=== PATIENT | female | born 1960 | race Caucasian/White ===

== ENCOUNTER 2021-04-30 11:07 | Emergency (ER) | payer OTHER ==
--- NOTE | 2021-04-30 11:39 | ERPHSYRPT ---
- History of Present Illness Time Seen by Provider: 04/30/21 11:15 Source: patient Exam Limitations: no limitations Patient Subjective Stated Complaint: Pt states "I got the first dose of the moderna vaccine and I was feeling ok, but then my heart started to race and I had a moment of chest pain but it is all better now. My heart is still racing." Triage Nursing Assessment: Pt presented alert and oriented X 3, skin wpd Pt able to speak in clear full sentences. Pt in no apparent respiratory distress. Pt resting comfortably on the bed. Physician History: Patient is a 60-year-old female presents to our emergency department for evaluation of chest pain and heart palpitations after receiving her first [employer] Covid vaccination. Symptoms started immediately after her vaccination. Patient experienced a brief moment of chest pain. Patient states her heart was racing. Patient states my heart feels like Jell-O. No other complaints. No nausea or vomiting. No diarrhea. No rash. No trauma. No fever. Symptoms are mild to moderate in intensity. No specific worsening improving factors. Patient voices no other complaints concerns at this time. Timing/Duration: today Severity: mild Modifying Factors: Improves With: nothing Associated Symptoms: denies symptoms, No shortness of breath, No syncope, No weakness Allergies/Adverse Reactions: No Known Drug Allergies Allergy (Verified 04/30/21 11:16) Home Medications: lisinopriL [Lisinopril] 10 mg PO DAILY 04/30/21 [History] Hx Tetanus, Diphtheria Vaccination/Date Given: No Hx Influenza Vaccination/Date Given: No Hx Pneumococcal Vaccination/Date Given: No Immunizations Up to Date: Yes Travel Risk - International Travel Have you traveled outside of the country in past 3 weeks: No - Coronavirus Screening Are you exhibiting any of the following symptoms?: No Close contact with a COVID-19 positive Pt in past 14-21 Days: No - Vaccine Status Have you recieved a Covid-19 vaccination: No (first dose) - Review of Systems Constitutional: No Symptoms, No Fever, No Chills Eyes: No Symptoms Ears, Nose, & Throat: No Symptoms Respiratory: No Symptoms, No Cough, No Dyspnea Cardiac: No Symptoms, No Chest Pain, No Edema, No Syncope Abdominal/Gastrointestinal: No Symptoms, No Abdominal Pain, No Nausea, No Vomiting, No Diarrhea Genitourinary Symptoms: No Symptoms, No Dysuria Musculoskeletal: No Symptoms, No Back Pain, No Neck Pain Skin: No Symptoms, No Rash Neurological: No Symptoms, No Dizziness, No Focal Weakness, No Sensory Changes Psychological: No Symptoms Endocrine: No Symptoms Hematologic/Lymphatic: No Symptoms Immunological/Allergic: No Symptoms All Other Systems: Reviewed and Negative - Past Medical History Pertinent Past Medical History: Yes Neurological History: No Pertinent History ENT History: No Pertinent History Cardiac History: Hypertension Respiratory History: No Pertinent History Endocrine Medical History: No Pertinent History Musculoskeletal History: No Pertinent History GI Medical History: No Pertinent History History: No Pertinent History Psycho-Social History: No Pertinent History Female Reproductive Disorders: No Pertinent History - Past Surgical History Past Surgical History: Yes Other Surgical History: thermal ablasion - Social History Smoking Status: Never smoker Exposure to second hand smoke: No Drug Use: none Patient Lives Alone: No - Nursing Vital Signs Nursing Vital Signs: Initial Vital Signs Temperature 98.0 F 04/30/21 11:09 Pulse Rate 99 H 04/30/21 11:09 Respiratory Rate 20 04/30/21 11:09 Blood Pressure 176/118 04/30/21 11:09 O2 Sat by Pulse Oximetry 98 04/30/21 11:09 Pain Scale Pain Intensity 0 - Physical Exam General Appearance: no apparent distress, alert Eye Exam: PERRL/EOMI, eyes nml inspection Ears, Nose, Throat Exam: normal ENT inspection, TMs normal, pharynx normal, moist mucous membranes Neck Exam: normal inspection, non-tender, supple, full range of motion Respiratory Exam: normal breath sounds, lungs clear, No respiratory distress Cardiovascular Exam: regular rate/rhythm, normal heart sounds, normal peripheral pulses Gastrointestinal/Abdomen Exam: soft, normal bowel sounds, No tenderness, No mass Back Exam: normal inspection, normal range of motion, No CVA tenderness, No vertebral tenderness Extremity Exam: normal inspection, normal range of motion, pelvis stable Neurologic Exam: alert, oriented x 3, cooperative, food and beverage checker II-XII nml as tested, normal mood/affect, sensation nml, No motor deficits Skin Exam: normal color, warm, dry, No rash Lymphatic Exam: No adenopathy SpO2 Interpretation: normal SpO2: 97 O2 Delivery: Room Air - Course Nursing assessment & vital signs reviewed: Yes EKG Interpreted by Me: RATE ([id number]), Sinus Rhythm, Right [place] Deviation, NORMAL INTERVALS Ordered Tests: Active Orders 24 hr Category Date Time Status Alignment Mechanic STAT Care 04/30/21 11:15 Active EKG-ER Only STAT Care 04/30/21 11:12 Active IV Insertion STAT Care 04/30/21 11:12 Active Pulse Oximetry (ED) STAT Care 04/30/21 11:12 Active CHEST 1 VIEW (PORTABLE) Stat Exams 04/30/21 11:15 Completed CBC W DIFF Stat Lab 04/30/21 11:35 Completed CMP Stat Lab 04/30/21 11:35 Completed TROPONIN Q3H Lab 04/30/21 11:35 Completed TROPONIN Q3H Lab 04/30/21 13:50 Completed TROPONIN Q3H Lab 04/30/21 17:15 Ordered TROPONIN Q3H Lab 04/30/21 20:15 Ordered TROPONIN Q3H Lab 04/30/21 23:15 Ordered Lab/Rad Data: Laboratory Result Diagrams 04/30/21 11:35 04/30/21 11:35 Laboratory Results 04/30/21 04/30/21 04/30/21 Range/Units 13:50 11:35 11:35 WBC (4.0-10.5) K/mm3 RBC (4.1-5.4) M/mm3 Hgb (12.0-16.0) gm/dl Hct (35-47) % MCV (78-100) fl MCH (26-32) pg MCHC (32-36) g/dl RDW (11.5-14.0) % Plt Count (150-450) K/mm3 MPV (7.5-11.0) fl Gran % (36.0-66.0) % Eos # (Auto) (0-0.5) Absolute Lymphs (auto) (1.0-4.6) Absolute Monos (auto) (0.0-1.3) Lymphocytes % (24.0-44.0) % Monocytes % (0.0-12.0) % Eosinophils % (0.00-5.0) % Basophils % (0.0-0.4) % Absolute Granulocytes (1.4-6.9) Basophils # (0-0.4) Sodium 140 (137-145) mmol/L Potassium 3.8 (3.5-5.1) mmol/L Chloride 107 (98-107) mmol/L Carbon Dioxide 23 (22-30) mmol/L Anion Gap 13.7 (5-15) MEQ/L BUN 16 (7-17) mg/dL Creatinine 0.62 (0.52-1.04) mg/dL Estimated GFR > 60.0 ML/MIN Glucose 141 H (74-106) mg/dL Calcium 9.1 (8.4-10.2) mg/dL Total Bilirubin 0.50 (0.2-1.3) mg/dL AST 30 (14-36) U/L ALT 18 (0-35) U/L Alkaline Phosphatase 75 (38-126) U/L Troponin I < 0.012 < 0.012 (0.000-0.034) ng/mL Serum Total Protein 6.6 (6.3-8.2) g/dL Albumin 4.1 (3.5-5.0) g/dL 04/30/21 Range/Units 11:35 WBC 5.1 (4.0-10.5) K/mm3 RBC 4.55 (4.1-5.4) M/mm3 Hgb 13.0 (12.0-16.0) gm/dl Hct 40.2 (35-47) % MCV 88.4 (78-100) fl MCH 28.6 (26-32) pg MCHC 32.3 (32-36) g/dl RDW 12.9 (11.5-14.0) % Plt Count 180 (150-450) K/mm3 MPV 11.2 H (7.5-11.0) fl Gran % 60.6 (36.0-66.0) % Eos # (Auto) 0.16 (0-0.5) Absolute Lymphs (auto) 1.40 (1.0-4.6) Absolute Monos (auto) 0.41 (0.0-1.3) Lymphocytes % 27.6 (24.0-44.0) % Monocytes % 8.1 (0.0-12.0) % Eosinophils % 3.1 (0.00-5.0) % Basophils % 0.6 (0.0-0.4) % Absolute Granulocytes 3.08 (1.4-6.9) Basophils # 0.03 (0-0.4) Sodium (137-145) mmol/L Potassium (3.5-5.1) mmol/L Chloride (98-107) mmol/L Carbon Dioxide (22-30) mmol/L Anion Gap (5-15) MEQ/L BUN (7-17) mg/dL Creatinine (0.52-1.04) mg/dL Estimated GFR ML/MIN Glucose (74-106) mg/dL Calcium (8.4-10.2) mg/dL Total Bilirubin (0.2-1.3) mg/dL AST (14-36) U/L ALT (0-35) U/L Alkaline Phosphatase (38-126) U/L Troponin I (0.000-0.034) ng/mL Serum Total Protein (6.3-8.2) g/dL Albumin (3.5-5.0) g/dL - Progress Progress: improved Progress Note: Patient reassessed. Symptoms resolved. Vital stable. Patient complained of a brief moment of chest pain. Cardiac work-up negative. EKG normal sinus rhythm. Troponin negative x2. Chest x-ray negative for acute pathology. No indication for further work-up at this time. Will discharge home. Patient agrees to follow-up with primary care doctor within 48 hours for reevaluation. Portions of this note were created with voice recognition technology. There may be grammatical, spelling, punctuation or sound alike errors 04/30/21 14:33 Counseled pt/family regarding: lab results, diagnosis, need for follow-up, rad results - Departure Departure Disposition: Home Clinical Impression: covid vaccination adverse event Condition: Stable Critical Care Time: No Referrals: SYLVIE BHAT MD [Primary Care Provider] - Additional Instructions: Discharge/Care Plan SANJAY SALMON was seen on 04/30/21 in the Emergency Room. The patient was counseled regarding Diagnosis,Lab results, Imaging studies, need for follow up and when to return to the Emergency Room. Prescriptions given: Discharge Note I have spoken with the patient and/or caregivers. I have explained the patient's condition, diagnosis and treatment plan based on the information available to me at this time. I have answered the patient's and/or caregiver's questions and addressed any concerns. The patient and/or caregivers have as good understanding of the patient's diagnosis, condition and treatment plan as can be expected at this point. The vital signs have been stable. The patient's condition is stable and appropriate for discharge from the emergency department. The patient will pursue further outpatient evaluation with the primary care physician or other designated or consulting physician as outlined in the discharge instructions. The patient and/or caregivers are agreeable to this plan of care and follow-up instructions have been explained in detail. The patient and/or caregivers have received these instruction. The patient/and or caregivers are aware that any significant change in condition or worsening of symptoms should prompt an immediate return to this or the closest emergency department or call 911.
--- NOTE | 2021-04-30 11:50 | XRAY ---
Indication: Chest pain. Comparison: None Portable chest demonstrates normal heart and lungs. Bony thorax intact with minimal dextroscoliosis.
[2021-04-30 12:00] LABS: Absolute Neutrophil Ct (ANC) 3.08 (1.4-6.9); BASOPHIL % 0.6 % (0.0-0.4); Basophil (Absolute #) 0.03 (0-0.4); Eosinophil % 3.1 % (0.00-5.0); Eosinophil (Absolute #) 0.16 (0-0.5); Hematocrit 40.2 % (35-47); Lymphocytes % 27.6 % (24.0-44.0); Mean Cell Volume 88.4 fl (78-100); Mean Corpuscular Hemoglobin 28.6 pg (26-32); Mean Corpuscular Hgb Concent. 32.3 g/dl (32-36); Mean Platelet Volume 11.2 fl (7.5-11.0); Monocyte (Absolute #) 0.41 (0.0-1.3); Monocytes % 8.1 % (0.0-12.0); Neutrophil % 60.6 % (36.0-66.0); Platelet Count 180 K/mm3 (150-450); Red Blood Count 4.55 M/mm3 (4.1-5.4); Red Cell Distribution Width 12.9 % (11.5-14.0); White Blood Count 5.1 K/mm3 (4.0-10.5)
[2021-04-30 12:01] LABS: ALBUMIN 4.1 g/dL (3.5-5.0); ALKALINE PHOSPHATASE 75 U/L (38-126); ANION GAP 13.7 MEQ/L (5-15); BLOOD UREA NITROGEN 16 mg/dL (7-17); CHLORIDE 107 mmol/L (98-107); Calcium 9.1 mg/dL (8.4-10.2); Carbon Dioxide 23 mmol/L (22-30); Creatinine 1 0.62 mg/dL (0.52-1.04); EST GLOMERULAR FILTRATION RATE > 60.0 ML/MIN; Glucose 141 mg/dL (74-106); Potassium 3.8 mmol/L (3.5-5.1); SGOT/AST 30 U/L (14-36); SGPT/ALT 18 U/L (0-35); SODIUM 140 mmol/L (137-145); Total Protein 6.6 g/dL (6.3-8.2)
[2021-04-30 12:10] VITALS: PULSE 94
[2021-04-30 13:06] VITALS: BP 133/75
[2021-04-30 14:35] VITALS: O2SAT 97
== END 2021-04-30 14:47 | disposition home or self-care (01) ==
LOC: ED 11:07
DX: T50.B95A Adverse effect of other viral vaccines, initial encounter (principal); R00.2 Palpitations
CPT/HCPCS: 36415; 71045; 80053; 84484; 85025; 93005; 93041; 94760; 99284